=== PATIENT | male | born 1995 | race Caucasian/White ===

== ENCOUNTER 2023-04-20 16:01 | Emergency (ER) | payer OTHER ==
[~2023-04-20] VITALS: Ht 170.2 cm; Wt 84.5 kg
[2023-04-20 16:05] VITALS: BP 135/94; PULSE 89; RESP 20; TEMP 97.9; O2SAT 99
[2023-04-20 16:52] VITALS: O2SAT 89
--- NOTE | 2023-04-20 16:57 | NUR ---
27 Y/O M PATIENT PRESENTS TO ED WITH PENIAL PAIN. PT STATES PAIN HAS OCCURED FOR 3 DAYS. HE WENT TO URGENT CARE AND WAS TESTED FOR STIS BUT EVERYTHING CAME BACK NEGATIVE. PT STATES PAIN HAS NOT STOPPED. PT HAS HAD NAUSEA BUT DENIES /V/D; SKIN IS PINK/WARM/DRY; AAOX4 WITH EVEN AND STEADY GAIT; LUNGS CLEAR BL; HR EVEN AND REGULAR; PT DENIES ANY FEVER, CP, SOB, OR COUGH AT THIS TIME; PATIENT STATES PAIN OF 10/10 AT THIS TIME; VSS; PATIENT POSITIONED FOR COMFORT; HOB ELEVATED; BEDRAILS UP X2; BED DOWN. CALL LIGHT WITH IN REACH ER MD MADE AWARE OF PT STATUS.
[2023-04-20] MEDS ORDERED: cefTRIAXone 500 MG in LIDOCAINE MPF 1% 1 ML IM ONE (17:15)
[2023-04-20] MEDS ORDERED: KETOROLAC 30 MG/ML VIAL IM ONE (17:15)
[2023-04-20] MEDS ORDERED: cefTRIAXone 500 MG VIAL ONE (17:41)
[2023-04-20] MEDS ORDERED: LIDOCAINE MPF 1% 5 ML ONE (17:41)
[2023-04-20 17:55] LABS: APPEARANCE,URINE CLEAR (CLEAR); BILIRUBIN,URINE NEGATIVE (NEGATIVE); BLOOD, URINE NEGATIVE (NEGATIVE); COLOR,URINE YELLOW (YELLOW); LEUKOCYTE ESTERASE ,URINE NEGATIVE (NEGATIVE); NITRITE, URINE NEGATIVE (NEGATIVE); UGLUCOSE NEGATIVE (NEGATIVE)
[2023-04-20 18:46] VITALS: O2SAT 89
--- NOTE | 2023-04-20 18:46 | NUR ---
NO CHANGE IN CONDITION, AWAITING FOR DISPO, SAFETY MAINTAIED. CALL LIGHT IN REACH.
[2023-04-20] MEDS ORDERED: DOXY-745 PO (19:01)
[2023-04-20] MEDS ORDERED: IBUP-2213 PO (19:01)
[2023-04-20 19:05] VITALS: BP 133/81; PULSE 82; RESP 15; TEMP 97.1; O2SAT 99
--- NOTE | 2023-04-20 19:05 | NUR ---
Patient discharged with v/s stable. Written and verbal after care instructions given and explained. Patient alert, oriented and verbalized understanding of instructions. Ambulatory with steady gait. All questions addressed prior to discharge. ID band removed. Patient advised to follow up with PMD. Rx of DOXYCYCLINE, IBUPROFEN given. Patient educated on indication of medication including possible reaction and side effects. Opportunity to ask questions provided and answered.
== END 2023-04-20 19:05 | disposition home or self-care (01) ==
LOC: MED 16:01
DX: N48.89 Other specified disorders of penis (principal); R03.0 Elevated blood-pressure reading, without diagnosis of hypertension; Z11.3 Encounter for screening for infections with a predominantly sexual mode of transmission; Z79.899 Other long term (current) drug therapy
CPT/HCPCS: 81003; 86592; 87491; 96372; 99284; J0696; J1885; J2001

== ENCOUNTER 2024-02-22 16:15 | Emergency (ER) | payer MEDICAID, OTHER ==
[~2024-02-22] VITALS: Ht 170.2 cm; Wt 90.7 kg
[~2024-02-22 16:15] MED LIST: DOXY-22 PO; IBUP-2213 PO
[2024-02-22 16:30] VITALS: BP 132/80; PULSE 90; RESP 18; TEMP 98.3; O2SAT 96
[2024-02-22 17:23] LABS: APPEARANCE,URINE CLEAR (CLEAR); BILIRUBIN,URINE NEGATIVE (NEGATIVE); BLOOD, URINE NEGATIVE (NEGATIVE); COLOR,URINE YELLOW (YELLOW); LEUKOCYTE ESTERASE ,URINE NEGATIVE (NEGATIVE); NITRITE, URINE NEGATIVE (NEGATIVE); PROTEIN,URINE NEGATIVE (NEGATIVE); UGLUCOSE NEGATIVE (NEGATIVE); UROBILINOGEN,URINE 0.2 EU/dL (0.2 - 1)
[2024-02-22] MEDS: KETOROLAC 30 MG/ML VIAL IM ONE (18:04)
[2024-02-22] MEDS ORDERED: MUPI2CRE22 TP (19:56)
[2024-02-22 20:04] VITALS: BP 118/53; PULSE 78; RESP 16; TEMP 98; O2SAT 97
== END 2024-02-22 20:04 | disposition home or self-care (01) ==
LOC: MED 16:15
DX: N48.1 Balanitis (principal); N50.89 Other specified disorders of the male genital organs; Z79.899 Other long term (current) drug therapy
CPT/HCPCS: 76870; 81003; 82948; 87491; 96372; 99285; J1885; Q0092

== ENCOUNTER 2024-06-27 11:58 | Emergency (ER) | payer SELFPAY ==
[~2024-06-27] VITALS: Ht 170.2 cm; Wt 93.0 kg
[~2024-06-27 11:58] MED LIST changes: +MUPI2CRE22 TP
[2024-06-27 12:08] VITALS: BP 116/87; PULSE 116; RESP 18; TEMP 97.4; O2SAT 99
[2024-06-27] MEDS: ONDANSETRON 4 MG ODT PO ONE (12:42)
[2024-06-27 12:59] LABS: BASOPHILS # (AUTO) 0.1 K/uL (0.00-0.22); BASOPHILS % (AUTO) 0.7 % (0.0-2.0); EOSINOPHILS # (AUTO) 0.2 K/uL (0-0.4); HEMATOCRIT 45.8 % (36-52); HEMOGLOBIN 15.2 g/dL (12.0-18.0); LYMPHOCYTES # (AUTO) 1.4 K/uL (2.0-11.5); LYMPHOCYTES % (AUTO) 15.7 % (20.5-51.1); MEAN CORPUSCULAR HEMOGLOBIN 30 pg (27-31); MEAN CORPUSCULAR HGB CONC 33 g/dL (33-37); MEAN CORPUSCULAR VOLUME 89.8 fL (80-94); MONOCYTES # (AUTO) 0.5 K/uL (0.8-1.0); MONOCYTES % (AUTO) 5.8 % (1.7-9.3); NEUTROPHILS # (AUTO) 6.9 K/uL (1.8-7.7); NEUTROPHILS % (AUTO) 75.8 % (42.2-75.2); PLATELET COUNT (AUTO) 278 K/uL (140-450); RED CELL DISTRIBUTION WIDTH 13.1 % (11.6-13.7); WHITE BLOOD COUNT (AUTO) 9.1 K/uL (4.8-10.8)
[2024-06-27 13:10] LABS: CALCIUM 8.3 mg/dL (8.5-10.1); CARBON DIOXIDE 24.7 mmol/L (21-32); CREATININE 0.9 mg/dL (0.6-1.3); POTASSIUM 3.7 mmol/L (3.5-5.1)
[2024-06-27 13:11] LABS: INR 1.05 (0.8-1.2)
[2024-06-27] MEDS: ALUMINUM HYD/MAG/SIMETHICONE 30 ML UDC PO ONE (13:11)
[2024-06-27 13:12] VITALS: BP 118/80; PULSE 93; RESP 16; O2SAT 96
[2024-06-27] MEDS: FAMOTIDINE 20 MG TAB PO ONE (13:12)
[2024-06-27 13:17] LABS: ALBUMIN 3.6 g/dL (3.4-5.0); BILIRUBIN,DIRECT 0.1 mg/dL (0.0-0.3); TOTAL BILIRUBIN 0.6 mg/dL (0.0-1.0); TOTAL PROTEIN, SERUM 6.9 g/dL (6.4-8.2)
[2024-06-27] MEDS ORDERED: FAMO-92 PO (13:29)
[2024-06-27] MEDS ORDERED: ONDA-188 SL (13:29)
== END 2024-06-27 13:37 | disposition home or self-care (01) ==
LOC: MED 11:58
DX: K29.20 Alcoholic gastritis without bleeding (principal); Z79.899 Other long term (current) drug therapy
CPT/HCPCS: 36415; 80048; 80076; 83690; 85025; 85610; 99284; Q0162